=== PATIENT | female | born 1980 | race Caucasian/White ===

== ENCOUNTER 2023-09-28 17:34 | Emergency (ER) | payer OTHER, SELFPAY ==
[2023-09-28 17:59] VITALS: BMI 27.3
[2023-09-28 18:24] LABS: COVID-19 Antigen Negative (Negative)
--- NOTE | 2023-09-28 18:29 | ED.GENMED ---
History of Present Illness
General
Chief Complaint: Cold/Flu/URI Symptoms
Source: patient
Exam Limitations: none
Time Seen by Provider: 09/28/23 18:11
Travel History
Have you had any contact with someone who has COVID-19?: No
Do you have any symptoms of coronavirus? Fever > 100 degrees, chills, cough, shortness of breath, sore throat, loss of taste or smell, muscle aches, or headache?: No
Symptoms:: fever, cough
History of Present Illness
History of Present Illness:
See MDM
Past History
Past History
ED Past Medical History: None
ED Past Surgical History:
Social History
Tobacco: Non-smoker
Personal:
Phy Exam
Physical Exam
Physical Exam:
See MDM
Course
Orders/Labs/Results
Orders:
Orders
09/28/23 17:40
Chest [CR Chest - 2 Views ] Urgent
Comment:
Reason For Exam: cough
09/28/23 17:41
COVID-19 Antigen Urgent
Source: Nasal Swab
Influenza A+B Rapid Molecular Urgent
MICHAEL Source: Nasal Swab
Specimen Description:
09/28/23 18:21
Dexamethasone Pf [Decadron] 10 mg PO NOW STA
Ibuprofen [Motrin] 600 mg PO NOW STA
Ipratropium/Albuterol Sulfate [Duoneb] 3 ml INH R NOW ONE
Vital Signs
Initial and Last Documented VS:
Initial Vital Signs
Temp Pulse Resp Pulse Ox
98.6 F 102 20 99
09/28/23 17:36 09/28/23 17:36 09/28/23 17:36 09/28/23 17:36
Last Documented Vital Signs
Temp Pulse Resp BP Pulse Ox
98.6 F 102 20 141/56 99
09/28/23 17:36 09/28/23 17:36 09/28/23 17:36 09/28/23 18:43 09/28/23 17:59
MDM/Problems Addressed
Differential Diagnosis Includes:
HPI and MDM Narrative:
43-year-old female presenting with cough, shortness of breath and fever. Patient has been feeling ill for the past 3 weeks or so. She eventually got prescribed an antibiotic for a wet cough. The cough is now dry. Her son returned from school
with a fever. Patient was worried it could be influenza since this is going on in his school
On my evaluation, lungs are clear. There is questionable bronchospastic cough. Given duration of symptoms, will give DuoNeb and steroids. Will obtain chest x-ray. Patient found to be influenza A positive
Physical exam
General: Well appearing and non-toxic
HEENT: protecting airway
Neck: appears supple
CV: No evidence of cyanosis
Resp: No accessory muscle use. Lungs clear. Bronchospastic cough
Abd: Non-distended
Extremities: No deformities
Neuro: alert
Psych: Normal affect
Skin: Intact
Problems Addressed including Acute and Chronic Conditions affecting care:
1. Influenza
Acuity: acute
Prognosis: stable
Details: Patient of the window of Tamiflu
2. Bronchospastic cough
Acuity: acute
Prognosis: stable
Details: Will obtain chest x-ray. Patient given DuoNeb and Decadron
3. [ ]
Acuity: acute
Prognosis: stable
Details:
4. [ ]
Acuity: acute
Prognosis: stable
Details:
5. [ ]
Acuity:
Prognosis:
Details:
Updates
Differential Diagnosis (but not limited to): Influenza, pneumonia, viral syndrome
Testing considered: EKG
Drug therapy (if applicable): OTC meds, please see d/c instruction regarding Rx drugs
Amount and/or Complexity of Data Reviewed
Clinical info obtained from: Patient
External data reviewed: N/A
Labs I independently reviewed (but not limited to) influenza
Radiology: N/A
Pulse Ox: not hypoxic
EKG independently reviewed: N/A
Vacuum Applicator Operator: N/A
Critical Care: N/A
Risk of Complication:
Social Determinants of health: Good social support
Discussed with other providers: N/A
Escalation of Care includes Admit/Obs: After being observed in the Emergency Department, pt stable for discharge.
Occasional wrong word or 'sound a like' substitutions may have occurred due to the inherent limitations of voice recognition software. Read the chart carefully and recognize, using context, where substitutions have occurred.
*Critical Care Note
Total Time (30-74mins, 75-104mins- exclusive of procedures): Not Applicable
ED Attending Note
-
Portions of this chart may have been created with voice recognition software.� Occasional wrong word or��sound alike� substitutions may have occurred due to the inherent limitations of voice recognition software.
Discharge Plan
Departure
Patient Disposition: Home (Routine Discharge)
Date of Disposition: 09/28/23
Time of Disposition: 20:03
Patient with high blood pressure during this ER visit?: Yes
Discharge Problem:
Influenza A
Instructions: Flu, Adult ED, BLOOD PRESSURE
Prescriptions:
New
albuterol sulfate [ProAir HFA] 90 mcg/actuation Hfa Aerosol Inhaler
1 puff INHALATION Q4HPRN PRN (Reason: shortness of breath) Qty: 8.5 0RF
prednisone 20 mg tablet
40 mg PO DAILY Qty: 10 0RF
No Action
ibuprofen 600 MG tablet
600 mg PO Q6HPRN PRN (Reason: cramps) Qty: 30 0RF
omeprazole 40 MG capsule,delayed release(DR/EC)
40 mg PO DAILY Qty: 30 0RF
Referrals:
Chago Santiago, [Family Provider] -
Activity Restrictions/Additional Instructions:
Please return for any worsening symptoms.
You may return at any time if you have further concerns.
Please follow up with your doctor at the first available appointment, preferably this week.
Thank you for choosing [facility].
Interventions
Interventions:
*Risk Screen - Suicide Last Done: 09/28/23 17:59
*General Assessment Last Done: 09/28/23 17:59
*Neglect/Abuse Screening Last Done: 09/28/23 17:59
ED- Fall Risk Assessment Last Done: 09/28/23 17:59
*ED COVID-19 Vaccine History Last Done: 09/28/23 17:59
ED- Pulmonary Assessment Last Done: 09/28/23 17:59
[2023-09-28] MEDS: DECADRON 10 MG PO (18:40)
[2023-09-28] MEDS: MOTRIN 600 MG PO (18:40)
[2023-09-28] MEDS: DUONEB 3 ML INH (18:41)
[2023-09-28 18:43] VITALS: BP 141/56
== END 2023-09-28 20:04 | disposition home or self-care (01) ==
LOC: EMR 17:34
PROVIDERS: EMERGENCY PHYSICIAN Student in an Organized Health Care Education/Training Program; FAMILY PHYSICIAN Family Medicine
DX: J10.1 Influenza due to other identified influenza virus with other respiratory manifestations (principal)
CPT/HCPCS: 99283; 94640; 71046; 87502; 87811

== ENCOUNTER 2024-12-05 17:49 | Emergency (ER) | payer OTHER, SELFPAY ==
[2024-12-05 17:55] VITALS: BP 132/90
[2024-12-05 18:16] LABS: % Basophils 1.1 % (0-2); % Eosinophils 3.7 % (0-6); % Immature Granulocytes 0.2 % (0-0.5); % Lymphocytes 29.6 % (20.5-51.1); % Monocytes 7.6 % (1.7-9.3); % Neutrophils 57.8 % (42.2-75.2); Absolute Basophils 0.1 10^3/uL (0-0.2); Absolute Eosinophils 0.3 10^3/uL (0-0.7); Absolute Lymphocytes 2.6 10^3/uL (1.2-3.4); Absolute Monocytes 0.7 10^3/uL (0.1-0.6); Absolute Neutrophils 5.1 10^3/uL (1.4-6.5); Hematocrit 42.2 % (37.0-47.0); Hemoglobin 13.8 g/dL (12.0-16.0); Mean Corp Hgb Conc. 32.7 g/dL (33.0-37.0); Mean Corpuscular Hgb 29.4 pg (27.0-31.0); Mean Platelet Volume 9.5 fL (7.4-10.4); Nucleated Red Blood Cells % 0 %; Platelet Count 261 10^3/uL (130-400); Red Blood Cell Count 4.69 10^6/uL (4.20-5.40); Red Cell Dist. Width 13.7 % (11.5-14.5); White Blood Cell Count 8.9 10^3/uL (4.8-10.8)
[2024-12-05 18:37] LABS: ALT (SGPT) 23 U/L (0-35); AST (SGOT) 23 U/L (14-36); Albumin 4.7 g/dl (3.5-5.0); Alkaline Phosphatase 92 U/L (38-126); Blood Urea Nitrogen 10 mg/dl (7-17); Calcium 9.2 mg/dl (8.4-10.2); Carbon Dioxide 22 mmol/L (22-30); Chloride 107 mmol/L (98-107); Glucose 99 mg/dl (70-99); Potassium 4.1 mmol/L (3.5-5.1); Sodium 141 mmol/L (135-145); Total Bilirubin 0.5 mg/dl (0.2-1.3); Total Protein 7.6 g/dl (6.3-8.2); eGFR > 60.00
[2024-12-05 20:03] VITALS: BMI 26.3
--- NOTE | 2024-12-05 20:46 | ED.GENMED ---
History of Present Illness
General
Chief Complaint: Skin Problem
Time Seen by Provider: 12/05/24 20:03
History of Present Illness
History of Present Illness:
Patient is a 44-year-old woman with history of recent presenting to the emergency department with concerns for skin infection. Patient states that her was 5 weeks ago. She went to her DECISION ANALYST to have her wound evaluated as the
decision was opened up. This occurred 2 weeks ago. At this time she did have a small area of redness but states it was not infected and likely due to irritation. Patient states that 2 days ago she went to an urgent care for the same area of
redness. They did start her on Keflex. Patient states that since then she still has ongoing redness. She does state that initially she had some drainage but there has not been any ongoing drainage. No fevers or chills. No abdominal pain.
Past History
Past History
ED Past Medical History: None
ED Past Surgical History:
Social History
Tobacco: Non-smoker
Personal:
Phy Exam
Physical Exam
Physical Exam:
GENERAL: in no acute distress
HEENT: normocephalic, extraocular movements intact
NECK: normal inspection
RESPIRATORY: no respiratory distress
CARDIOVASCULAR: regular rate and rhythm
ABDOMEN/: soft, non-distended, non-tender to palpation, no rebound or guarding, incision clean dry intact. Small area of dried serosanguineous fluid where an old suture was with surrounding erythema about 1 mm. It is not warm. It is not
swollen. It is not tender.
EXTREMITIES: non-tender, no edema/swelling
NEUROLOGIC: awake and alert, moves all extremities
SKIN: warm
Course
Orders/Labs/Results
Orders:
Orders
12/05/24 18:09
CBC/With Diff [Complete Blood Count/With Diff] Urgent
CMP [Comprehensive Metabolic Panel] Urgent
Abnormal Lab Results
12/05/24
18:09
MCHC 32.7 L g/dL
(33.0-37.0)
Absolute Monos (auto) 0.7 H 10^3/uL
(0.1-0.6)
12/05/24 18:09
12/05/24 18:09
Vital Signs
Initial and Last Documented VS:
Initial Vital Signs
Temp Pulse Resp BP Pulse Ox
97.9 F 91 20 132/90 96
12/05/24 17:55 12/05/24 17:55 12/05/24 17:55 12/05/24 17:55 12/05/24 17:55
Last Documented Vital Signs
Temp Pulse Resp BP Pulse Ox
97.9 F 91 20 132/90 96
12/05/24 17:55 12/05/24 17:55 12/05/24 17:55 12/05/24 17:55 12/05/24 17:55
MDM/Problems Addressed
Differential Diagnosis Includes:
Patient is a 44-year-old woman with recent presenting to the emergency department with concerns for skin infection. Vitals are notable for being afebrile and on exam patient does have a well-healing incision with an area of
dried serosanguineous fluid and surrounding 1 mm erythema which has been unchanged for the past 2 weeks. At this time the wound does not look infected. It is not warm tender or swollen. There is no obvious fluctuance. Her abdominal exam was
benign. Patient does state that she has sensitive skin and based off pictures this is how the incision looked when she was evaluated by her DECISION ANALYST 2 weeks ago. Patient advised to keep taking the antibiotic and to follow-up with her DECISION ANALYST to have
a repeat wound check. We did discuss about possibly adding MRSA coverage however given that patient is afebrile improvement in symptoms we will hold off on adding any additional antibiotics. Patient advised to keep cleaning the wound and keep it
covered with a gauze. Strict return precautions given. Will discharge at this time.
*Critical Care Note
Total Time (30-74mins, 75-104mins- exclusive of procedures): Not Applicable
ED Attending Note
-
Portions of this chart may have been created with voice recognition software.� Occasional wrong word or��sound alike� substitutions may have occurred due to the inherent limitations of voice recognition software.
Discharge Plan
Departure
Patient Disposition: Home (Routine Discharge)
Date of Disposition: 12/05/24
Time of Disposition: 20:46
Patient with high blood pressure during this ER visit?: No
Discharge Problem:
Encounter for post surgical wound check
Instructions: Wound Care (DC)
Prescriptions:
No Action
ibuprofen 600 MG tablet
600 mg PO Q6HPRN PRN (Reason: cramps) Qty: 30 0RF
omeprazole 40 MG capsule,delayed release(DR/EC)
40 mg PO DAILY Qty: 30 0RF
albuterol sulfate [ProAir HFA] 90 mcg/actuation Hfa Aerosol Inhaler
1 puff INHALATION Q4HPRN PRN (Reason: shortness of breath) Qty: 8.5 0RF
prednisone 20 mg tablet
40 mg PO DAILY Qty: 10 0RF
Referrals:
Anna Allan MD [Family Provider] -
Interventions
Interventions:
*Risk Screen - Suicide Last Done: 12/05/24 17:55
*General Assessment Last Done: 12/05/24 17:55
*Neglect/Abuse Screening Last Done: 12/05/24 17:55
*ED- Fall Risk Assessment Last Done: 12/05/24 17:55
*ED COVID-19 Vaccine History Last Done: 12/05/24 20:03
Discharge Date and Time
Print Language: PRYDEINIG
== END 2024-12-05 20:54 | disposition home or self-care (01) ==
LOC: EMR 17:49
PROVIDERS: Emergency Medicine; EMERGENCY PHYSICIAN Student in an Organized Health Care Education/Training Program; FAMILY PHYSICIAN Obstetrics & Gynecology
DX: O99.893 Other specified diseases and conditions complicating puerperium (principal); Z48.01 Encounter for change or removal of surgical wound dressing
CPT/HCPCS: 99283; 80053; 85025

== ENCOUNTER 2025-05-10 02:58 | Emergency (ER) | payer OTHER, SELFPAY ==
[2025-05-10 03:00] VITALS: BP 143/79
[2025-05-10 03:49] LABS: Hematocrit 36.5 % (37.0-47.0); Hemoglobin 12.3 g/dL (12.0-16.0); Mean Corp Hgb Conc. 33.7 g/dL (33.0-37.0); Mean Corpuscular Volume 89.7 fL (81.0-99.0); Nucleated Red Blood Cells % 0 %; Platelet Count 279 10^3/uL (130-400); Red Cell Dist. Width 12.1 % (11.5-14.5)
[2025-05-10 03:55] LABS: HCG, Serum Qualitative Screen Negative
[2025-05-10 04:02] LABS: Albumin 4.1 g/dl (3.5-5.0); Carbon Dioxide 24 mmol/L (22-30)
[2025-05-10 04:13] LABS: ALT (SGPT) 18 U/L (0-35); AST (SGOT) 17 U/L (14-36); Alkaline Phosphatase 67 U/L (38-126); Blood Urea Nitrogen 11 mg/dl (7-17); Calcium 9.0 mg/dl (8.4-10.2); Chloride 106 mmol/L (98-107); Glucose 99 mg/dl (70-99); Potassium 3.5 mmol/L (3.5-5.1); Sodium 137 mmol/L (135-145); Total Protein 7.0 g/dl (6.3-8.2); eGFR > 60.00
--- NOTE | 2025-05-10 04:19 | ED.GENMED ---
History of Present Illness
General
Chief Complaint: Vaginal Bleeding
Time Seen by Provider: 05/10/25 03:06
History of Present Illness
History of Present Illness:
see MDM
Past History
Past History
ED Past Medical History: None
ED Past Surgical History:
Social History
Tobacco: Non-smoker
Personal:
Phy Exam
Physical Exam
Physical Exam:
GENERAL: Alert , in no apparent distress
EYE: pupils equal and reactive
NECK: Supple
ENT: o/p clr, mmm.
CARDIAC: Regular rate and rhythm .
LUNGS: Clear breath sounds bilaterally, no acute respiratory distress, no wheezes/rales/rhonchi
ABDOMEN: Soft, without focal tenderness, no r/g, no cvat, normal bowel sounds
gu: mild blood in vault
no tednerness, no clots, no adnexal tenderness
NEUROLOGICAL: Alert and oriented, no focal neuro deficits
SKIN: Warm and dry, skin intact.
PSYCH: Normal and appropriate interaction.
Course
Orders/Labs/Results
Orders:
Orders
05/10/25 03:07
Test Result ONCE
05/10/25 03:30
US Pelvis W Transvag Combined Urgent
Comment:
Reason For Exam: dub
05/10/25 03:39
Complete Blood Count/With Diff Urgent
Comprehensive Metabolic Panel Urgent
HCG, Serum Qualitative Screen Urgent
Abnormal Lab Results
05/10/25
03:39
RBC 4.07 L 10^6/uL
(4.20-5.40)
Hct 36.5 L %
(37.0-47.0)
Absolute Monos (auto) 0.7 H 10^3/uL
(0.1-0.6)
05/10/25 03:39
05/10/25 03:39
Vital Signs
Initial and Last Documented VS:
Initial Vital Signs
Temp Pulse Resp BP Pulse Ox
36.8 C 83 16 143/79 100
05/10/25 03:00 05/10/25 03:00 05/10/25 03:00 05/10/25 03:00 05/10/25 03:00
Last Documented Vital Signs
Temp Pulse Resp BP Pulse Ox
36.8 C 83 16 143/79 100
05/10/25 03:00 05/10/25 03:00 05/10/25 03:00 05/10/25 03:00 05/10/25 04:19
MDM/Problems Addressed
Differential Diagnosis Includes:
seeMDM
MDM/Problems Addressed:
Note:
CHIEF COMPLAINT(S)
Excessive vaginal bleeding.
HISTORY OF PRESENT ILLNESS
The patient is a 44-year-old female who presents with excessive vaginal bleeding. She reports having experienced irregular menstruation since giving six months ago with very light or no periods at all. Recently, she changed gynecologists due
to dissatisfaction with previous care and received a suggestion to start control pills for suspected perimenopause. but she did not start it yet, she was waiting fo rher period to start
2 days ago she started bleeding but yesterday all day she had heavier bleeding than previously.
She describes passing smaller clots and experiencing soaking through a super-absorbent tampon and pad within an hour. The [place] intensity [place] the mall around 6:30-7:00 PM, where she had to change the tampon and pad hourly
for several hours.
Despite the heavy bleeding, she reports not feeling lightheaded and experiences no pain after taking 1000 mg of acetaminophen the previous night and at 5 AM.
The patient did not start the prescribed control due to not picking it up from the pharmacy. She also took an iron supplement as a precautionary measure. The patient denies any current pain and has not experienced lightheadedness.
SOCIAL HISTORY
The patient had a meal including a cheeseburger and was at the mall prior to noticing increased bleeding.
MEDICATIONS
Acetaminophen 1000 mg taken the night before the visit and at 5 AM.
Iron supplement taken after returning from school.
PHYSICAL EXAM
- Nursing notes reviewed and vital signs reviewed.
- Patient to remove all feminine hygiene products for further examination.
PLAN
1. Conduct a complete blood count to assess for anemia due to significant blood loss and consider the need for a blood transfusion.
2. Perform an ultrasound to evaluate for fibroids or other structural causes of uterine bleeding.
3. Conduct a test to rule out as a cause of bleeding.
4. Discuss potential initiation of tranexamic acid (TXA) if bleeding persists, for its clotting properties.
5. Consider starting control to regulate menstruation once acute bleeding is managed.
DIFFERENTIAL DIAGNOSIS
The Differential Diagnosis includes, in no particular order and is not limited to:
1. Dysfunctional uterine bleeding.
2. Uterine fibroids.
3. Perimenopause.
4. Endometrial hyperplasia.
5. Hormonal imbalance.
6. Coagulopathy.
7. Infection.
8. Thyroid dysfunction.
9. Polycystic ovary syndrome.
10. Malignancy of the reproductive tract.
CARE-UPDATE
05/10/25 - 05:36
Patient reports significant increase in bleeding following an ultrasound, describing it as very heavy BUT PRIOR TO ULTRASOUND IT WAS STOPPED FOR SOME TIME. Despite this, the patients hemoglobin level is 12.3, indicating no anemia. Ultrasound results
are normal with no signs of fibroids. It is noted that the heavy bleeding could be due to changes or age-related factors, but it is deemed manageable. Patient is advised to start control to help regulate bleeding. There are no
indicators requiring further intervention at this time. Blood pressure is stable and overall health is satisfactory. The plan is to monitor symptoms and reassess if necessary.
*Pulse Oximetry
SaO2: 100
Oxygen Mode of Delivery: Room air
Patient hypoxic: no (100)
*Critical Care Note
Total Time (30-74mins, 75-104mins- exclusive of procedures): Not Applicable
ED Attending Note
-
Portions of this chart may have been created with voice recognition software.� Occasional wrong word or��sound alike� substitutions may have occurred due to the inherent limitations of voice recognition software.
Discharge Plan
Departure
Patient Disposition: Home (Routine Discharge)
Date of Disposition: 05/10/25
Time of Disposition: 05:32
Patient with high blood pressure during this ER visit?: No
Condition: Fair
Discharge Problem:
Dysfunctional uterine bleeding
Instructions: Heavy Periods (DC)
Prescriptions:
No Action
No Current Medications
0
Referrals:
UNKNOWN - PT DOES,NOT KNOW [Family Provider]
Activity Restrictions/Additional Instructions:
START YOUR CONTROL PILL TO HELP WITH THE HEAVY PERIOD
CALL YOUR GYNE FOR FOLLOW UP
YOUR HEMOGLOBIN WAS NORMAL AND YOUR ULTRASOUND DID NOT SHOW ANY SIGNIFICANT ABNORMALITIES.
RETURN FOR SEVERE BLEEDING WITH LIGHTHEADEDNESS, SEVERE PAIN OR ANY CONCERNS.
Interventions
Interventions:
*Risk Screen - Suicide Last Done: 05/10/25 03:00
*General Assessment Last Done: 05/10/25 03:00
*Neglect/Abuse Screening Last Done: 05/10/25 03:00
*ED- Fall Risk Assessment Last Done: 05/10/25 03:07
ED-Female Genitourinary Assessment Last Done: 05/10/25 03:07
Discharge Date and Time
Print Language: ROMANIAN
[2025-05-10 05:48] VITALS: BP 136/74
== END 2025-05-10 05:49 | disposition home or self-care (01) ==
LOC: EMR 02:58
PROVIDERS: Physician Assistant; EMERGENCY PHYSICIAN Emergency Medicine
DX: N93.8 Other specified abnormal uterine and vaginal bleeding (principal)
CPT/HCPCS: 99284; 76830; 76856; 80053; 84703; 85025